=== PATIENT | male | born 1960 | race Caucasian/White ===

== ENCOUNTER 2025-01-29 10:15 | Day surgery (SDC) | payer OTHER ==
[~2025-01-29] VITALS: Ht 182.9 cm; Wt 77.9 kg
[~2025-01-29 10:15] MED LIST: ACET-910 PO; IBUP200C35 PO; OSTETAB2 PO; ROPI0.5T33 PO; VITA100093 PO
[2025-01-29] MEDS ORDERED: LR 1,000 ML IV SCH (11:10)
[2025-01-29] MEDS ORDERED: KETOROLAC 30 MG/ML 1 ML VIAL As Ordered ONE (11:46)
[2025-01-29] MEDS ORDERED: MIDAZOLAM INJ 2 MG/2 ML VIAL As Ordered ONE (11:46)
[2025-01-29] MEDS ORDERED: LIDOCAINE 2% 100 MG/5 ML SDV (FOR ANES.) As Ordered ONE (11:46)
[2025-01-29] MEDS ORDERED: ONDANSETRON 4MG 2ML VIAL As Ordered ONE (11:46)
[2025-01-29] MEDS ORDERED: dexAMETHasone 4 MG/ML 1 ML VIAL As Ordered ONE (11:46)
[2025-01-29] MEDS ORDERED: ACETAMINOPHEN 1000MG/100ML IV BAG As Ordered ONE (13:31)
[2025-01-29] MEDS ORDERED: ONDANSETRON 4MG 2ML VIAL IV PRN (14:00)
[2025-01-29 15:00] VITALS: BP 130/84; TEMP 97.2; O2SAT 98
== END 2025-01-29 15:12 | disposition home or self-care (01) ==
LOC: M SDC 10:15
PROVIDERS: ATTEND Orthopaedic Surgery Hand Surgery
DX: G56.02 Carpal tunnel syndrome, left upper limb (principal); G20.A1 Parkinson's disease without dyskinesia, without mention of fluctuations; Z79.899 Other long term (current) drug therapy
CPT/HCPCS: 29848; J0131; J0665; J1100; J1885; J2250; J2405; J3010

== ENCOUNTER → 2025-03-08 | Outpatient (CLI) | payer OTHER | LOC: M SOG 08:37 | PROVIDERS: ATTEND Physician Assistant | DX: M25.532 Pain in left wrist (principal); M19.032 Primary osteoarthritis, left wrist; M11.13 Familial chondrocalcinosis, wrist ==

== ENCOUNTER → 2025-03-22 | Outpatient (CLI) | payer OTHER | LOC: M SOG 07:40 | PROVIDERS: ATTEND Physician Assistant | DX: M25.532 Pain in left wrist (principal) ==